=== PATIENT | female | born 1955 | race Caucasian/White ===

== ENCOUNTER 2022-12-23 11:09 | Observation (INO) | payer MEDICARE, MEDICAID ==
[~2022-12-23] VITALS: Ht 172 cm; Wt 105.0 kg
[~2022-12-23 11:09] MED LIST: CYCL10TA45; HCT25T; LVT.025T; MORP15TA8; MORPHINE; PEG250PW; RSG4T; SMV10T; SPRN25T; SRTR100T; TOLTA4; [UNRECOGNIZED DRUG - OTHER]; glucophage
[2022-12-23] MEDS ORDERED: NS IV 500 ML 500 ML IV ONE ×2 (11:45→14:00)
--- NOTE | 2022-12-23 11:54 | ED Cardiac General ---
History of Present Illness General Chief Complaint: Cardiac/General Problems Stated Complaint: ELEVATED HEART RATE Nursing Triage Note: PT TO ED IN BY POCleve WITH JEANNETTEER WITH C/O RACING HEART. PT REPORTS SHE JUST MOVED BACK HERE WITH DAUGHTER FROM [place] THIS MORNING AND HAS BEEN IN THE CAR FOR 30 HOURS. PT REPORTS SHE FEELS LIKE HER HEART IS RACING, BUT DENIES CP OR SOB. DAUGHTER STATES THEY ARE HERE BECAUSE THEY WOULD LIKE PT TO HAVE BASELINE MEDICAL EXAM SO SHE CAN BE PLACED IN A LONG TERM. PT STATES SHE IS ON ELIQUIS, AND THINKS SHE MAY HAVE HX OF AFIB. Source: patient Exam Limitations: no limitations History of Present Illness Date Seen by Provider: Dec 23, 2022 Time Seen by Provider: 11:23 Initial Comments 76-year-old female presents to the ED with complaints of racing heart starting last night around 9 PM. Patient reports she feels fluttering in her chest at times. Patient started a trip from [place] last Friday. She reports that she stopped in [place] Friday evening. She resumed her trip to [facility] last night at 9 PM. She was living in [place] for the last 18 months with her other daughter, her daughter that is with her here now drove her back to [place] this weekend. Patient is bedbound, unable to ambulate. Patient has rods, plates, and screws throughout her spine and hips due to an injury which occurred when she was young. She reports chronic shortness of air, wears 2 L O2 at all times, currently not wearing oxygen, saturation remains in the mid to low 90s. She reports that she has had intermittent chest pain for a long time, reports that it has been worse since she started the trip back to [place]. She is wearing a mathews catheter, which her daughter placed prior to this trip. Patient does not normally use a catheter. She denies fevers, abdominal pain, nausea, vomiting, diarrhea, dysuria. Past medical history includes chronic kidney disease, CHF, hyperlipidemia, chronic UTIs, and a stone in her bladder. She reports that she recently completed a round of Cipro for UTI. Patient reports she takes Zocor, Xanax, Eliquis, and nalbuphine. She is unsure why they started her on Eliquis. Allergies and Home Medications Allergies Coded Allergies: Iodinated Contrast Media (Verified Allergy, Unknown, 04/13/08) Penicillins (Verified Allergy, Unknown, 01/19/07) Sulfa (Sulfonamide Antibiotics) (Verified Allergy, Unknown, 01/19/07) ofloxacin (Verified Allergy, Unknown, 01/19/07) sulfamethoxazole (Verified Allergy, Unknown, 01/19/07) trimethoprim (Verified Allergy, Unknown, 01/19/07) Uncoded Allergies: DYE-CONTRAST (Allergy, Unknown, 01/19/07) Patient Home Medication List Home Medication List Reviewed: Yes Acetaminophen (Tylenol Extra Strength) 500 Mg Tablet, 1,000 MG PO Q8H PRN for PAIN-MILD (1-4), (Reported) Entered as Reported by: JANIE KLEIN on 12/24/22 1017 Last Action: Reviewed Discontinued Medications Alprazolam (Alprazolam) 1 Mg Tablet, 1 MG PO HS, (Reported) Discontinued Reason: No Longer Taking Entered as Reported by: TANVI PAIGE on 12/23/22 164 Last Action: Discontinued Apixaban (Eliquis) 5 Mg Tablet, 5 MG PO HS, (Reported) Discontinued Reason: No Longer Taking Entered as Reported by: TANVI PAIGE on 12/23/221648 Last Action: Discontinued Cyclobenzaprine Hcl (Flexeril) 10 Mg Tablet, (Reported) Discontinued Reason: No Longer Taking Entered as Reported by: FABIOLA PEREZ on 01/19/071410 Last Action: Discontinued Hydrochlorothiazide (Hydrochlorothiazide) 25 Mg Tablet, (Reported) Discontinued Reason: No Longer Taking Entered as Reported by: FABIOLA PEREZ on 01/19/071409 Last Action: Discontinued Levothyroxine Sodium (Synthroid) 25 Mcg Tablet, (Reported) Discontinued Reason: No Longer Taking Entered as Reported by: FABIOLA PEREZ on 01/19/071410 Last Action: Discontinued Morphine Sulfate (Morphine Sulfate IR 15 Mg) 15 Mg Tablet, (Reported) Discontinued Reason: No Longer Taking Entered as Reported by: FABIOLA PEREZ on 01/19/071411 Last Action: Discontinued Polyethylene Glycol (Miralax) 12 Ea Box, (Reported) Discontinued Reason: No Longer Taking Entered as Reported by: FABIOLA PEREZ on 01/19/071411 Last Action: Discontinued Rosiglitazone Maleate (Avandia) 4 Mg Tablet, (Reported) Discontinued Reason: No Longer Taking Entered as Reported by: FABIOLA PEREZ on 01/19/071409 Last Action: Discontinued Sertraline Hcl (Zoloft) 100 Mg Tablet, (Reported) Discontinued Reason: No Longer Taking Entered as Reported by: FABIOLA PEREZ on 01/19/071409 Last Action: Discontinued Simvastatin (Zocor) 10 Mg Tablet, (Reported) Discontinued Reason: No Longer Taking Entered as Reported by: FABIOLA PEREZ on 01/19/071410 Last Action: Discontinued Spironolactone (Aldactone) 25 Mg Tablet, (Reported) Discontinued Reason: No Longer Taking Entered as Reported by: FABIOLA PEREZ on 01/19/071407 Last Action: Discontinued Tolterodine Tartrate (Detrol La 4 Mg Cap) 4 Mg Cap.sr.24h, (Reported) Discontinued Reason: No Longer Taking Entered as Reported by: FABIOLA PEREZ on 01/19/071408 Last Action: Discontinued [avinza 120mg] , (Reported) Discontinued Reason: No Longer Taking Entered as Reported by: FABIOLA PEREZ on 01/19/071406 Last Action: Discontinued [glucophage] , (Reported) Discontinued Reason: No Longer Taking Entered as Reported by: FABIOLA PEREZ on 01/19/071407 Last Action: Discontinued [nalbufina] , 10 MG SC HS, (Reported) Discontinued Reason: No Longer Taking Entered as Reported by: TANVI PAIGE on 12/23/22 1649 Last Action: Discontinued [voltran xr] , (Reported) Discontinued Reason: No Longer Taking Entered as Reported by: FABIOLA PEREZ on 01/19/071408 Last Action: Discontinued Review of Systems Review of Systems Constitutional: see HPI Past Mpyhcvm-Brtsgg-Erjxtr Hx Patient Social History Tobacco Use?: No Use of E-Cig and/or Vaping dev: Yes E-Cig or Vaping type used: Nicotine Use of E-Cig and/or Vaping Benson: Current Someday User Substance use?: No Alcohol Use?: No Pt feels they are or have been: No Immunizations Up To Date Influenza Vaccine Up-to-Date: No; Not Current First/Initial COVID19 Vaccinat: n/a Past Medical History Surgery/Hospitalization HX: CHF, STAGE 4 CKD, A-FIB, DM2, HIGH CHOLESTEROL Reproductive Disorders: No Physical Exam Vital Signs Vital Signs - First Documented 12/23/22 11:19 Temp 36.4 Pulse 131 Resp 24 B/P (MAP) 114/93 (100) Pulse Ox 94 O2 Delivery Room Air Capillary Refill : Less Than 3 Seconds Height, Weight, BMI Height: '" Weight: lbs. oz. kg; 46.00 BMI Method: General Appearance: No Apparent Distress, WD/WN Respiratory: Lungs Clear, Normal Breath Sounds, No Accessory Muscle Use, No Respiratory Distress, Decreased Breath Sounds Cardiovascular: Normal Peripheral Pulses, Tachycardia Extremity: Pedal Edema (Mild, +1), Other (Bilateral lower extremities are purple in color) Neurologic/Psychiatric: Alert, Normal Mood/Affect Skin: Normal Color, Warm/Dry Focused Exam Lactate Level 12/23/22 12:00: Lactic Acid Level 1.43 Lactic Acid Level Laboratory Tests Test 12/23/22 12:00 Lactic Acid Level 1.43 MMOL/L (0.50-2.00) Progress/Results/Core Measures Results/Orders Lab Results Laboratory Tests Test 12/23/22 12:00 12/23/22 12:34 Range/Units White Blood Count 10.7 4.3-11.0 10^3/uL Red Blood Count 5.30 H 3.80-5.11 10^6/uL Hemoglobin 15.9 11.5-16.0 g/dL Hematocrit 48 35-52 % Mean Corpuscular Volume 90 80-99 fL Mean Corpuscular Hemoglobin 30 25-34 pg Mean Corpuscular Hemoglobin Concent 33 32-36 g/dL Red Cell Distribution Width 12.4 10.0-14.5 % Platelet Count 180 130-400 10^3/uL Mean Platelet Volume 9.6 9.0-12.2 fL Immature Granulocyte % (Auto) 1 % Neutrophils (%) (Auto) 71 42-75 % Lymphocytes (%) (Auto) 21 12-44 % Monocytes (%) (Auto) 6 0-12 % Eosinophils (%) (Auto) 2 0-10 % Basophils (%) (Auto) 0 0-10 % Neutrophils # (Auto) 7.6 1.8-7.8 10^3/uL Lymphocytes # (Auto) 2.2 1.0-4.0 10^3/uL Monocytes # (Auto) 0.6 0.0-1.0 10^3/uL Eosinophils # (Auto) 0.2 0.0-0.3 10^3/uL Basophils # (Auto) 0.0 0.0-0.1 10^3/uL Immature Granulocyte # (Auto) 0.1 0.0-0.1 10^3/uL Prothrombin Time 15.0 H 12.2-14.7 SEC INR Comment 1.1 0.8-1.4 Activated Partial Thromboplast Time 31 24-35 SEC D-Dimer <= 0.27 0.00-0.49 UG/ML Sodium Level 137 135-145 MMOL/L Potassium Level 4.1 3.6-5.0 MMOL/L Chloride Level 104 98-107 MMOL/L Carbon Dioxide Level 22 21-32 MMOL/L Anion Gap 11 5-14 MMOL/L Blood Urea Nitrogen 21 H 7-18 MG/DL Creatinine 0.73 0.60-1.30 MG/DL Estimat Glomerular Filtration Rate 90 BUN/Creatinine Ratio 29 Glucose Level 143 H 70-105 MG/DL Lactic Acid Level 1.43 0.50-2.00 MMOL/L Calcium Level 10.3 H 8.5-10.1 MG/DL Corrected Calcium 10.5 H 8.5-10.1 MG/DL Magnesium Level 1.7 1.6-2.4 MG/DL Total Bilirubin 0.6 0.1-1.0 MG/DL Aspartate Amino Transf (AST/SGOT) 27 5-34 U/L Alanine Aminotransferase (ALT/SGPT) 28 0-55 U/L Alkaline Phosphatase 61 40-136 U/L Troponin I < 0.028 <0.028 NG/ML B-Type Natriuretic Peptide < 10.0 <100.0 PG/ML Total Protein 7.1 6.4-8.2 GM/DL Albumin 3.8 3.2-4.5 GM/DL Urine Color YELLOW Urine Clarity CLEAR Urine pH 5.0 5-9 Urine Specific [place] 1.025 H 1.016-1.022 Urine Protein TRACE H NEGATIVE Urine Glucose (UA) NEGATIVE NEGATIVE Urine Ketones NEGATIVE NEGATIVE Urine Nitrite POSITIVE H NEGATIVE Urine Bilirubin NEGATIVE NEGATIVE Urine Urobilinogen 0.2 < = 1.0 MG/DL Urine Leukocyte Esterase 2+ H NEGATIVE Urine RBC (Auto) TRACE-I H NEGATIVE Urine RBC 0-2 /HPF Urine WBC 50-100 H /HPF Urine Squamous Epithelial Cells 0-2 /HPF Urine Crystals NONE /LPF Urine Bacteria MODERATE H /HPF Urine Casts NONE /LPF Urine Mucus NEGATIVE /LPF Urine Culture Indicated YES Micro Results Microbiology 12/23/22 Urine Culture - Preliminary, Resulted Gram Negative Steven My Orders Orders - SHABNAM GUILLAUME APRN Ekg Tracing (12/23/22 11:24) Cbc With Automated Diff (12/23/22 11:44) Magnesium (12/23/22 11:44) Chest 1 View, Ap/Pa Only (12/23/22 11:44) Comprehensive Metabolic Panel (12/23/22 11:44) Protime With Inr (12/23/22 11:44) Partial Thromboplastin Time (12/23/22 11:44) O2 (12/23/22 11:44) Monitor-Rhythm Ecg Trace Only (12/23/22 11:44) Ed Iv/Invasive Line Start (12/23/22 11:44) Bnp Varun (12/23/22 11:44) Fibrin Degradation Products (12/23/22 11:44) Troponin I [place] (12/23/22 11:44) Blood Culture (12/23/22 11:44) Urinalysis (12/23/22 11:44) Urine Culture (12/23/22 11:44) Vital Signs Adult Sepsis Patie Q15M (12/23/22 11:44) Remove Rings In Anticipation O (12/23/22 11:44) Lactic Acid Analyzer (12/23/22 11:44) Ns Iv 500 Ml (Sodium Chloride 0.9%) (12/23/22 11:45) Ceftriaxone Iv/Im (Rocephin Iv/Im) (12/23/22 13:00) Ns Iv 500 Ml (Sodium Chloride 0.9%) (12/23/22 14:00) Ed Admission (Communication) (12/23/22 14:42) Medications Given in ED Vital Signs/I&O 12/23/22 11:19 Temp 36.4 Pulse 131 Resp 24 B/P (MAP) 114/93 (100) Pulse Ox 94 O2 Delivery Room Air 12/23/22 23:59 Intake Total 1050 ml Balance 1050 ml Blood Pressure Mean: 100 Progress Progress Note : Time: 11:55 Progress Note Patient seen and evaluated, resting in wheelchair, no acute distress. Based on exam and symptoms, concern for PE, pneumonia, UTI. Work-up initiated including CBC, CMP, magnesium, troponin, BNP, D-dimer, lactic acid, blood cultures x2, UA, chest x-ray, EKG. 500 ML of fluid ordered. EKG reviewed, see below. 1314 labs chest x-ray reviewed. CBC shows normal white count 10.7, slightly elevated RBC 5.3, no anemia. CMP shows BUN slightly elevated 21, creatinine normal 0.73, GFR normal 90. Magnesium normal 1.7. Troponin negative. Lactic acid normal 1.43. BNP normal less than 10. Coags normal. D-dimer negative. UA shows elevated urine specific gravity 1.025, trace protein, positive nitrites, 2+ leukocytes, trace RBCs, 50-100 WBCs, moderate bacteria. Patient's allergy to penicillin as a rash, Rocephin ordered for UTI. Chest x-ray shows cardiomegaly, no other acute abnormality. Will order another 500 mL of fluid. Results discussed with patient and daughter. Patient is wanting to get into a custodial, because she has no place to live. adoption social worker called to assist with this. [id number] manager social responsibility, spoke with patient and daughter. She is unable to get custodial placement today. She states that [facility] should be able to get her room tomorrow. I called and spoke with Dr. Rodgers, hospitalist, regarding patient. He agrees to admit patient for observation for inability to care for self and custodial placement, as well as UTI. He will place admission orders. Initial ECG Impression Date: Dec 23, 2022 Initial ECG Impression Time: 11:27 Initial ECG Rate: 133 Initial ECG Rhythm: S.Tach Initial ECG Intervals: QT (QTc elevated 494) Initial ECG Impression: Nonspecific Changes Initial ECG Comparisson: Changed Comment Previous EKG shows right bundle branch block. There is no T wave inversion in lead V4, V5, V6. Q waves noted in the 3, ST elevation likely related to bundle- branch block, no T wave inversion lead III. Diagnostic Imaging Diagonstic Imaging: Xray Plain Films/CT/US/NM/MRI: chest Comments [facility] [place] NAME: TAMIKA BARRERA [facility] REC#: [id number] PT STATUS: REG ER : 1955 PHYSICIAN: SHABNAM GUILLAUME APRN ADMIT DATE: 12/23/22/ER Signed Date of Exam:12/23/22 CHEST 1 VIEW, AP/PA ONLY Indication: Chest pain Frontal chest obtained at 12:31 p.m. There is cardiomegaly. There is no focal infiltrate or pneumothorax or pleural fluid. Impression: Cardiomegaly with no acute process in the chest. Dictated by: Dictated on workstation # [id number] Dict: 12/23/22 1238 Trans: 12/23/22 1258 [facility] [id number] Interpreted by: ZAID DOLL MD Electronically signed by: ZAID DOLL MD 12/23/22 1258 Departure Communication (Admissions) Time/Spoke to Admitting Phy: 14:40 Dr. Rodgers, hospitalist, called for admission. See progress note. Impression Primary Impression: Bedbound Additional Impressions: Hospital admission due to social situation Unable to care for self Urinary tract infection Disposition: ADMITTED INPATIENT Condition: Stable Admissions Decision to Admit Reason: Admit from ER (General) Decision to Admit/Date: Dec 23, 2022 Time/Decision to Admit Time: 14:40 Departure-Patient Inst. Referrals: ZOË GARZA DO (PCP/Family) Primary Care Physician SHABNAM GUILLAUME APRN Dec 23, 2022 11:54
[2022-12-23 12:11] LABS: BASOPHILS % (AUTO) 0 % (0-10); EOSINOPHILS # (AUTO) 0.2 10^3/uL (0.0-0.3); EOSINOPHILS % (AUTO) 2 % (0-10); HEMATOCRIT 48 % (35-52); HEMOGLOBIN 15.9 g/dL (11.5-16.0); LYMPHOCYTES # (AUTO) 2.2 10^3/uL (1.0-4.0); LYMPHOCYTES % (AUTO) 21 % (12-44); MEAN CORPUSCULAR HEMOGLOBIN 30 pg (25-34); MEAN CORPUSCULAR HGB CONC 33 g/dL (32-36); MEAN CORPUSCULAR VOLUME 90 fL (80-99); MEAN PLATELET VOLUME 9.6 fL (9.0-12.2); MONOCYTES # (AUTO) 0.6 10^3/uL (0.0-1.0); MONOCYTES % (AUTO) 6 % (0-12); NEUTROPHILS # (AUTO) 7.6 10^3/uL (1.8-7.8); NEUTROPHILS % (AUTO) 71 % (42-75); PLATELET COUNT 180 10^3/uL (130-400); WHITE BLOOD COUNT 10.7 10^3/uL (4.3-11.0)
[2022-12-23 12:21] LABS: INR 1.1 (0.8-1.4)
[2022-12-23 12:26] LABS: ALBUMIN 3.8 GM/DL (3.2-4.5); POTASSIUM 4.1 MMOL/L (3.6-5.0)
[2022-12-23 12:28] LABS: CALCIUM 10.3 MG/DL (8.5-10.1)
[2022-12-23 12:29] LABS: TOTAL PROTEIN 7.1 GM/DL (6.4-8.2)
[2022-12-23 12:31] LABS: BILIRUBIN,TOTAL 0.6 MG/DL (0.1-1.0)
[2022-12-23 12:32] LABS: CREATININE SERUM 0.73 MG/DL (0.60-1.30)
[2022-12-23 12:35] LABS: MAGNESIUM 1.7 MG/DL (1.6-2.4)
--- NOTE | 2022-12-23 12:41 | Diagnostic Imaging Report ---
Indication: Chest pain Frontal chest obtained at 12:31 p.m. There is cardiomegaly. There is no focal infiltrate or pneumothorax or pleural fluid. Impression: Cardiomegaly with no acute process in the chest. Dictated by: Dictated on workstation # [id number]
[2022-12-23 12:44] LABS: BILIRUBIN,URINE NEGATIVE (NEGATIVE); CLARITY,URINE CLEAR; COLOR,URINE YELLOW; GLUCOSE, URINE (UA) NEGATIVE (NEGATIVE); KETONES,URINE NEGATIVE (NEGATIVE); LEUKOCYTE ESTERASE ,URINE 2+ (NEGATIVE); NITRITE,URINE POSITIVE (NEGATIVE); PROTEIN,URINE TRACE (NEGATIVE)
[2022-12-23 12:51] LABS: BACTERIA,URINE MODERATE /HPF; RBC,URINE 0-2 /HPF; SQUAMOUS EPITHELIAL CELL,UR 0-2 /HPF; WBC,URINE 50-100 /HPF
[2022-12-23] MEDS ORDERED: cefTRIAXone IV/IM 1,000 MG in NS (IVPB) 50 ML IV ONE (13:00)
[2022-12-23 16:00] VITALS: BP 137/83
[2022-12-23] MEDS ORDERED: diphenhydrAMINE 50 MG/ML INJ (BENADRYL) IVP PRN (16:15)
[2022-12-23] MEDS ORDERED: MILK OF MAGNESIA 400 MG/5 ML 30 ML UDC PO PRN (16:15)
[2022-12-23] MEDS ORDERED: ACETAMINOPHEN 325 MG TABLET PO PRN (16:15)
[2022-12-23] MEDS ORDERED: polyethylene glycoL POWDER 17 GM (MIRALAX) PACK PO PRN (16:15)
[2022-12-23] MEDS ORDERED: ONDANSETRON 4 MG (ZOFRAN) ORAL DISSOLVE TAB PO PRN (16:15)
[2022-12-23] MEDS ORDERED: ANTACID SUSP 30 ML UDC (MYLANTA) PO PRN (16:15)
[2022-12-23] MEDS ORDERED: CALCIUM CARBONATE 500 MG (TUMS) TAB.CHEW PO PRN (16:15)
[2022-12-23] MEDS ORDERED: LACTULOSE SYRUP 10GM/15ML (ENULOSE) 30ML UDC PO PRN (16:15)
[2022-12-23] MEDS ORDERED: ONDANSETRON 4 MG/2 ML (SDV) Z0FRAN IV PRN (16:15)
[2022-12-23] MEDS ORDERED: MELATONIN 3 MG TABLET PO PRN (16:15)
[2022-12-23] MEDS ORDERED: diphenhydrAMINE 25 MG TAB (BENADRYL) PO PRN (16:15)
[2022-12-23] MEDS ORDERED: BISACODYL 10 MG SUPP (DULCOLAX) PR PRN (16:15)
[2022-12-23] MEDS ORDERED: ALPR1TAB7 PO (16:49)
[2022-12-23] MEDS ORDERED: APIX5TAB PO (16:49)
[2022-12-23] MEDS ORDERED: [UNRECOGNIZED DRUG - OTHER] SC (16:49)
[2022-12-23] MEDS ORDERED: ALPRAZolam 0.5 MG (XANAX) TAB PO PRN (17:00)
[2022-12-23 19:19] VITALS: BP 123/65
[2022-12-23] MEDS: SENNOSIDES 8.6 MG (SENOKOT) TAB PO SCH (20:13)
[2022-12-23] MEDS: DOCUSATE SODIUM 100 MG (COLACE) CAP PO SCH (20:14)
[2022-12-23] MEDS: APIXABAN 5 MG (ELIQUIS) TABLET PO SCH (20:14)
[2022-12-23 23:16] VITALS: BP 102/63
[2022-12-24 03:26] VITALS: BP 95/61
[2022-12-24 07:23] VITALS: BP 98/61
[2022-12-24] MEDS: SENNOSIDES 8.6 MG (SENOKOT) TAB PO SCH (08:24)
[2022-12-24] MEDS: APIXABAN 5 MG (ELIQUIS) TABLET PO SCH (08:24)
[2022-12-24] MEDS: DOCUSATE SODIUM 100 MG (COLACE) CAP PO SCH (08:24)
[2022-12-24] MEDS ORDERED: ACET-2267 PO (10:17)
[2022-12-24 11:32] VITALS: BP 104/63
[2022-12-24] MEDS ORDERED: cefTRIAXone IV/IM 1,000 MG in NS (IVPB) 50 ML IV SCH (13:00)
[2022-12-24] MEDS ORDERED: NITR-65 PO (13:13)
--- NOTE | 2022-12-24 13:16 | Discharge Inst-Skilled Nursing ---
Discharge Inst-Skilled NF Reconcile Patient Problems Problems Reviewed?: Yes Consult/Follow Up/Orders Follow Up Appt.: next intermediate rounds Skilled NF Admit to: [facility] Certification (SNF) I certify that SNF services are required to be given on an inpatient basis because of the above named patient's need for nursing home care on a continuing basis for the conditions(s) for which he/she was receiving inpatient hospital services prior to his/her transfer to the SNF. Group Home Facility Order: Nursing Services, Ssn/Ssbn Assistant Navigator-Evaluate & Treat, Physical Therapy-Evaluate & Treat Oxygen Delivery Method: Room Air Discharge Diet: No Restrictions Daily Activity as Tolerated: Yes Resuscitation Status: Do Not Resuscitate New & Resume Previous Orders Amna Santiago Dec 24, 2022 13:16 AMNA SANTIAGO MD Dec 24, 2022 13:16
[2022-12-24] MEDS ORDERED: APIX5TAB PO (13:56)
--- NOTE | 2022-12-24 18:53 | Short Stay Summary-Hospitalist ---
History of Present Illness HPI/Chief Complaint Naty Fontaine is a 67 year old female with PMH HTN, HLD, AFib, obesity, debility, who presented with palpitations. She has been living with her daughter in [place]. She just [place] the [place]. She is bedbound and her family is unable to care for her at home. They have already talked to [facility] and she is planning on moving into their correction. Upon my exam, she has no acute complaints or concerns. She denies chest pain. She denies shortness of breath. She denies urinary symptoms. She has some chronic pain in her shoulder. Source: patient Exam Limitations: no limitations Date Seen 12/24/22 Time Seen by a Provider: 11:20 Attending Physician Gómez Deluca DO PCP Admitting Physician: Mor Santiago MD Attending Physician: Mor Santiago MD Referring Physician Date of Admission Dec 23, 2022 at 15:50 Home Medications & Allergies Home Medications Reviewed patient Home Medication Reconciliation performed by pharmacy medication reconciliations dye lab technician and/or nursing. Patients Allergies have been reviewed. Allergies Allergies Coded Allergies Iodinated Contrast Media (Verified Allergy, Unknown, 04/13/08) Penicillins (Verified Allergy, Unknown, 01/19/07) Sulfa (Sulfonamide Antibiotics) (Verified Allergy, Unknown, 01/19/07) ofloxacin (Verified Allergy, Unknown, 01/19/07) sulfamethoxazole (Verified Allergy, Unknown, 01/19/07) trimethoprim (Verified Allergy, Unknown, 01/19/07) Uncoded Allergies DYE-CONTRAST ( Allergy, Unknown, 01/19/07) Past Svlaxbb-Seolud-Uxpcyr Hx Patient Social History Tobacco Use?: No Smoking Status: Former Smoker Use of E-Cig and/or Vaping dev: No E-Cig or Vaping type used: Nicotine Use of E-Cig and/or Vaping Benson: Former User Substance use?: No Alcohol Use?: No Pt feels they are or have been: No Immunizations Up To Date First/Initial COVID19 Vaccinat: n/a Current Status Advance Directives: No Communicates: Verbally Primary Language: Divehi Preferred Spoken Language: Divehi Is interpretation needed?: No Sensory deficits: Vision impairment Implanted or Applied Medical D: Orthopedic hardware Family Medical History No Pertinent Family Hx Review of Systems Constitutional: no symptoms reported Respiratory: no symptoms reported Cardiovascular: no symptoms reported Gastrointestinal: no symptoms reported Physical Exam Physical Exam Vital Signs Vital Signs - First Documented 12/23/22 11:19 Temp 36.4 Pulse 131 Resp 24 B/P (MAP) 114/93 (100) Pulse Ox 94 O2 Delivery Room Air Capillary Refill : Less Than 3 Seconds Height, Weight, BMI Height: '" Weight: lbs. oz. kg; 35.49 BMI Method: General Appearance: No Apparent Distress, Obese Respiratory: Lungs Clear, Normal Breath Sounds, No Respiratory Distress Cardiovascular: Regular Rate, Rhythm, No Murmur, Normal Peripheral Pulses Gastrointestinal: Normal Bowel Sounds, Soft Extremity: Normal Inspection, No Pedal Edema Neurologic/Psychiatric: Alert, Normal Mood/Affect Skin: Normal Color, Warm/Dry Results Results/Procedures Labs Laboratory Tests 12/23/22 12:00 Patient resulted labs reviewed. Imaging: Reviewed Imaging Report Short Stay Diagnosis Discharge Diagnosis-Short Stay Admission Diagnosis UTI Final Discharge Diagnosis UTI Conclusion Plan UTI Macrobid Debility Social work consulted [facility] to [facility] AFib Obesity Chronic pain Diagnosis/Problems Diagnosis/Problems (1) UTI (urinary tract infection) Status: Acute (2) Debility Status: Chronic (3) Afib Status: Chronic (4) Chronic pain Status: Chronic (5) Obesity Status: Chronic MOR SANTIAGO MD Dec 24, 2022 18:53
== END 2022-12-24 13:13 ==
LOC: EDUNIT# 11:09 → ER 11:15 → 4TH 15:50 → UNDOADMOB 15:50 → 4TH 16:07 → UNDODISOB 12-24 13:13
PROVIDERS: ADMIT Internal Medicine; ATTEND Internal Medicine
DX: N39.0 Urinary tract infection, site not specified (principal); G89.29 Other chronic pain; R00.2 Palpitations; E66.9 Obesity, unspecified; R53.81 Other malaise; I48.91 Unspecified atrial fibrillation; Z74.1 Need for assistance with personal care; Z87.891 Personal history of nicotine dependence; Z99.81 Dependence on supplemental oxygen
CPT/HCPCS: 71045; 80053; 81000; 83605; 83735; 83880; 84484; 85025; 85379; 85610; 85730; 87040; 87077; 87088; 93005; 93041; 96376; 99284; G0378; 36415; 87185; 87186

== ENCOUNTER → 2023-08-10 | Outpatient (CLI) | payer MEDICARE, MEDICAID ==
[~2023-08-10] MED LIST changes: +ACET-2267 PO; +ALPR1TAB7 PO; +APIX5TAB PO; +NITR-65 PO; +[UNRECOGNIZED DRUG - OTHER] SC
[2023-08-10 10:52] LABS: BILIRUBIN,URINE NEGATIVE (NEGATIVE); CLARITY,URINE CLEAR; COLOR,URINE YELLOW; GLUCOSE, URINE (UA) NEGATIVE (NEGATIVE); KETONES,URINE NEGATIVE (NEGATIVE); NITRITE,URINE POSITIVE (NEGATIVE); PH,URINE 5.5 (5-9); PROTEIN,URINE NEGATIVE (NEGATIVE)
[2023-08-10 10:53] LABS: BACTERIA,URINE MODERATE /HPF; LEUKOCYTE ESTERASE ,URINE 2+ (NEGATIVE)
== END ==
LOC: LABNPT 10:31
PROVIDERS: ATTEND Internal Medicine
DX: Z01.89 Encounter for other specified special examinations (principal)
CPT/HCPCS: 81000; 87088